=== PATIENT | female | born 1935 | race Caucasian/White ===

== ENCOUNTER → 2023-05-09 | Outpatient (CLI) | payer MEDICARE, SELFPAY ==
[2023-05-09 09:56] LABS: Absolute Lymphocyte Count 1.06 X10^3/uL (0.83-4.51); Absolute Neutrophil Count 3.6 X10^3/uL (2.0-7.7); Basophil# 0.06 X10^3/uL; Eosinophil# 0.31 X10^3/uL; Eosinophils% 5.4 % (0-5); Hemoglobin 12.7 g/dL (12.0-15.0); Lymphocyte # 1.06 X10^3/ul (0.83-4.51); Lymphocyte % 18.5 % (19-41); Mean Corp Hgb Conc 32.6 g/dL (32-36); Mean Corpuscular Hgb 33.1 pg (27.0-32.0); Mean Corpuscular Volume 101.6 fL (81-99); Mean Platelet Vol. 10.5 fl (6.2-12.0); Monocyte# 0.71 X10^3/uL; Monocyte% 12.4 % (0-10); NRBC Flagged by Analyzer 0 % (0-5); Neutrophil # 3.57 X10^3/uL (2.7-7.7); Neutrophil % 62.4 % (47-70); Platelet Count 188 K/mm3 (150-450); RBC Distribution Width CV 12.6 % (11.6-14.6); RBC Distribution Width SD 47.6 fl (35.1-43.9); Red Blood Count 3.84 M/mm3 (4.2-5.4); White Blood Count 5.7 K/mm3 (4.4-11.0)
[2023-05-09 10:35] LABS: ALB/GLOB Ratio 1.2 RATIO (0.9-2.4); AST(SGOT) 22 U/L (15-37); Alanine Aminotransfer ALT/SGPT 25 U/L (13-56); Albumin, Serum 3.4 g/dL (3.2-5.0); Alkaline Phosphatase 94 U/L (45-117); Anion Gap 4 (5-15); BUN 17 mg/dL (7-18); BUN/Creat Ratio 19.9 RATIO (10-20); Calcium,Total 9.4 mg/dL (8.5-10.1); Chloride 110 mmol/L (98-107); Creatinine, Serum 0.85 mg/dL (0.55-1.02); EST Glomerular Filtration Rate 67 mL/min (>60); Est Glom Filt Rate - Afr Amer 81 mL/min (>60); Globulin 2.8 g/dL (2.2-4.2); Glucose 111 mg/dL (74-106); Protein, Total 6.2 g/dL (6.4-8.2); Sodium Level 143 mmol/L (136-145)
== END | disposition home or self-care (01) ==
LOC: LAB 08:38
PROVIDERS: PCP Internal Medicine; Referring Provider Internal Medicine; Visit Provider Internal Medicine
DX: I10 Essential (primary) hypertension (principal)
CPT/HCPCS: 36415; 80053; 85025

== ENCOUNTER 2023-05-13 20:07 | Observation (INO) | payer MEDICARE, SELFPAY ==
[2023-05-13 20:10] VITALS: BP 168/58; PULSE 60; RESP 18; TEMP 36.6; O2SAT 98; BMI 23.8
--- NOTE | 2023-05-13 20:42 | EDS_ITS ---
HPI HPI - Fall History of Present Illness Chief Complaint: Fall Informant: patient and family Occured/Mechanism Occurred: Today Mechanism/Context: Yes same level fall Usually ambulates: Walker Pain/Injury Pain Location: head, upper extremity (Right shoulder) and lower extremity (Right hip and right foot) Quality of Pain: Aching Worsened by: Movement Relieved by: Rest Associated Symptoms Associated Symptoms: Negative for Parasthesias, Weakness, Loss of function or Loss of consciousness Narrative Narrative: Patient presents after a fall that occurred today. Patient tried to stand from a seated position and fell onto her right side. Patient did hit her head. Family denies any loss of consciousness. Patient states her pain is mainly over her right shoulder. Patient also admits to some mild pain in her right hip and right foot. Patient states her pain is worse with any movement. Patient denies any paresthesias or weakness. Patient denies any other injuries. Tetanus Immunization: Unknown [facility] Medical History Atherosclerotic heart disease of [place] coronary artery without angina pectoris Cataract Constipation Essential (primary) hypertension Hyperlipidemia Non-ST elevation (NSTEMI) myocardial infarction (03/09/15) Pericardial effusion Peripheral vascular disease with claudication Positive colorectal cancer screening using Cologuard test Stenosis of right carotid artery Home Medications aspirin 81 mg tablet,delayed release 81 mg PO DAILY 03/29/17 [History Last Taken 11/12/18] levothyroxine 50 mcg tablet 50 mcg PO DAILY 03/29/17 [History Last Taken 11/20/18] losartan 100 mg tablet 100 mg PO DAILY #90 tabs 08/17/18 [Rx Last Taken Unknown] doxazosin 4 mg tablet 4 mg PO DAILY 10/20/18 [History Last Taken Unknown] amlodipine 10 mg tablet 10 mg PO DAILY 08/13/19 [History Last Taken Unknown] metoprolol tartrate 50 mg tablet 50 mg PO BID 08/12/20 [History Last Taken Unknown] clopidogrel 75 mg tablet (Plavix) 75 mg PO DAILY 11/27/21 [History Last Taken Unknown] memantine 10 mg tablet 10 mg PO QPM 07/23/22 [History Last Taken Unknown] biotin 1 mg tablet 1 mg PO DAILY 08/31/22 [History Last Taken Unknown] cholecalciferol (vitamin D3) 25 mcg (1,000 unit) tablet 25 mcg PO DAILY 08/31/22 [History Last Taken Unknown] folic acid 1 mg tablet 2 mg PO DAILY 08/31/22 [History Last Taken Unknown] ginkgo biloba leaf extract 60 mg capsule 60 mg PO DAILY 08/31/22 [History Last Taken Unknown] potassium chloride 10 mEq tablet,extended release 10 meq PO DAILY 08/31/22 [History Last Taken Unknown] sulfasalazine 500 mg tablet 0.5 g PO DAILY 08/31/22 [History Last Taken Unknown] furosemide 40 mg tablet See Rx Instructions .Route .COMPLEX #90 tabs 09/30/22 [Rx Last Taken Unknown] atorvastatin 40 mg tablet 40 mg PO QHS 30 days #30 tabs 10/23/22 [Rx Last Taken Unknown] hydrocodone-acetaminophen 5-325mg 5mg-325mg 1 tab PO Q6H PRN PRN Pain 3 days #10 TABLETS 05/13/23 [Rx Last Taken Unknown] Allergy/AdvReac Type Severity Reaction Status Date / Time codeine Allergy Nausea/Vom/ Verified 08/31/22 10:41 Diarrhea duloxetine HCl Allergy Nausea/Vom/ Verified 08/31/22 10:41 [From Cymbalta] Diarrhea esomeprazole [From Nexium] Allergy Unknown Verified 08/31/22 10:41 gabapentin Allergy Unknown Verified 08/31/22 10:41 lisinopril Allergy Nausea Verified 08/31/22 10:41 tramadol Allergy Nausea Verified 08/31/22 10:41 meloxicam AdvReac Intermediate GI upset Verified 08/31/22 10:41 iodine AdvReac Hives Verified 08/31/22 10:41 Penicillins AdvReac Other Verified 08/31/22 10:41 Family History Father Cancer Mother No problems noted. Surgical History History of angioplasty of peripheral vessel (04/2017) History of coronary artery stent placement History of left heart catheterization (03/10/15) Hx of cholecystectomy Hx of shoulder surgery Social History housing: house Smoking Status: Former smoker alcohol intake: never substance use type: does not use caffeine: Yes Type: coffee Number of servings: 1 what type of physical activity do you participate in: none seatbelt use: always do you feel safe at home: Yes ROS ROS ED Constitutional Constitutional ED: Denies chills or fever(s) Eyes Eyes: Denies blurry vision or change in vision ENT ENT ED: Denies rhinorrhea or sore throat Cardiovascular Cardiovascular: Denies chest pain or palpitations Respiratory/Chest Respiratory/Chest: Denies cough or dyspnea Gastrointestinal Gastrointestinal: Denies nausea or vomiting Genitourinary Genitourinary ED: Denies dysuria or hematuria Musculoskeletal Musculoskeletal: Denies back pain or neck pain Integumentary Denies abscess or rash Neurologic Neurologic: Denies headache(s) or weakness Allergic/Immunologic Allergic/Immunologic ED: Denies mouth swelling or urticaria EXAM Physical Exam Const Vital Signs: 05/13/23 20:10 05/13/23 20:10 Temperature 98 F Temperature Source Temporal Pulse Rate 60 Respiratory Rate 18 Respiratory Effort Normal Respiratory Depth Normal Respiratory Pattern Normal Blood Pressure 168/58 H Blood Pressure Mean 94 Pulse Ox 98 Oxygen Delivery Method Room Air Room Air Positive well nourished and well developed General Appearance ED: well developed and NAD HEENT HEENT Narrative: There is some right periorbital ecchymosis and edema. There is a 1.5 cm linear laceration over the lateral aspect of the right periorbital area. There is minimal gapping of the wound margins. There is minimal bleeding. There is no bony crepitance or step-off noted. trauma Eyes PERRL and EOMs intact bilaterally Neck full ROM Resp normal respiratory effort and clear to auscultation bilaterally Cardio regular rate and regular rhythm GI non-tender and non-distended Extremity Extremity Narrative: There is tenderness, edema, and ecchymosis over the right shoulder and proximal humerus. Range of motion was limited in all motions of the right shoulder secondary to pain. There is mild tenderness over the right hip and right foot. There is no deformity noted. There is good range of motion of the right lower extremity. Radial and pedal pulses are equal bilaterally. Strength is 5/5 bilaterally in the upper and lower extremities. There are no sensory deficits noted. Neuro CN's II-XII intact bilaterally, moves all extremities, no focal motor deficits and no sensory deficits noted [place] Coma Scale: document GCS findings Spontaneous Obeys Commands Oriented 15 Sensorium / Orientation: alert Motor Exam: strength 5/5 throughout Psych mental status grossly normal MDM MDM MDM Narrative Medical decision making narrative: Differential diagnosis includes intracranial bleeding, proximal humerus fracture, shoulder contusion, hip fracture, foot fracture, and closed head injury. CT scan of the brain will be obtained to assess for intracranial bleeding. X-rays of the right shoulder will be obtained to assess for proximal humerus fracture. X-rays of the right hip will be obtained to assess for hip fracture. X-rays of the right foot will be obtained to assess for foot fracture. Radiography Diagnostic Testing: Clinical Impression(s) from Imaging Studies Brain CT 05/13/23 21:04 IMPRESSION: Chronic involutional changes of the brain. No acute intracranial hemorrhage. Suspect acute facial fracture with hemorrhage in the right maxillary sinus. Correlation with facial bone CT is recommended. Electronically Signed: Jonathan Alexis MD at 22:17 EST Reading Location ID and State: [place] / [employer] , Service support , Foot X-Ray 05/13/23 21:25 IMPRESSION: No acute fracture or dislocation. Electronically Signed: Jonathan Alexis MD at 22:05 EST Reading Location ID and State: [place] / [employer] , Service support , Hip/Pelvis X-Ray 05/13/23 21:25 IMPRESSION: No acute fracture or dislocation. Electronically Signed: Jonathan Alexis MD at 22:09 EST Reading Location ID and State: [place] / [employer] , Service support , Shoulder X-Ray 05/13/23 21:25 IMPRESSION: Acute nondisplaced humeral neck fracture. Electronically Signed: Jonathan Alexis MD at 22:10 EST Reading Location ID and State: [id number] / [employer] , Service support , CT scan of the brain was obtained. There is no intracranial bleeding noted. There is hemorrhage in the right maxillary sinus likely from a facial fracture. This was interpreted by the radiologist and was also independently reviewed by myself. X-rays of the right shoulder were obtained. There are 2 views. On my independent interpretation, there is nondisplaced fracture of the proximal humerus. There is no dislocation noted. There is no soft tissue swelling noted. Radiologist also interpreted the x-rays and agrees. X-rays of the right hip were obtained. There are 3 views. On my independent interpretation, there is no acute fracture or dislocation noted. Radiologist also interpreted the x- rays and agrees.X-rays of the right foot were obtained. There are 3 views. On my independent interpretation, there is no acute fracture or dislocation noted. There is no soft tissue swelling noted. Radiologist also interpreted the x-rays and agrees. Treatment and Re-Evaluation Narrative: Patient and family were advised of the findings. Patient was given a sling and swath. The laceration over the right periorbital area was cleaned and closed with Dermabond skin adhesive. Patient tolerated the procedure well. Daughter was instructed to avoid bacitracin, Neosporin, triple antibiotic, or Vaseline- based ointments to the area. Daughter was concerned that she would be unable to care for the patient at home. Patient was unable to ambulate here in the emergency department. Because of this, I will discuss the case with the hospitalist for observation admission. Discharge Plan Triage Chief Complaint: Fall ED Provider: Warner Carbajal Dx/Rx/DC Orders Clinical Impression: Closed fracture of proximal end of right humerus, Facial laceration, Fall Prescriptions: New hydrocodone-acetaminophen [hydrocodone-acetaminophen] 5-325 mg tablet 1 tab PO Q6H PRN PRN (Reason: Pain) 3 Days Qty: 10 0RF No Action losartan 100 mg tablet 100 mg PO DAILY Qty: 90 3RF amlodipine 10 mg tablet 10 mg PO DAILY doxazosin 4 mg tablet 4 mg PO DAILY metoprolol tartrate 50 mg tablet 50 mg PO BID sulfasalazine 500 mg tablet 0.5 g PO DAILY potassium chloride 10 mEq tablet extended release 10 meq PO DAILY folic acid 1 mg tablet 2 mg PO DAILY biotin 1 mg tablet 1 mg PO DAILY ginkgo biloba leaf extract 60 mg capsule 60 mg PO DAILY Rx Instructions: give with meal/snack cholecalciferol (vitamin D3) 25 mcg (1,000 unit) tablet 25 mcg PO DAILY clopidogrel [Plavix] 75 mg tablet 75 mg PO DAILY memantine 10 mg tablet 10 mg PO QPM aspirin 81 MG tablet,delayed release (DR/EC) 81 mg PO DAILY levothyroxine 50 MCG tablet 50 mcg PO DAILY atorvastatin 40 mg Tablet 40 mg PO QHS 30 Days Qty: 30 0RF furosemide 40 mg tablet See Rx Instructions .ROUTE .COMPLEX Qty: 90 3RF Dose Instruction: TAKE 1 TABLET BY MOUTH DAILY Rx Instructions: TAKE 1 TABLET BY MOUTH DAILY Primary Care Provider: Ashley Montoya Referrals: Ashley Montoya MD [Primary Care Provider] - 5-7 Days Robert Syed MD [Med Staff - Active Staff] - 5-7 Days Disposition Disposition: Acute Care Hospital [facility]
--- NOTE | 2023-05-13 21:04 | CT_ITS ---
STUDY: CT BRAIN WITHOUT CONTRAST REASON FOR EXAM: Female, 87 years old. Injury/Pain RADIATION DOSAGE (If Supplied By Facility): CTDIvol = ( 44.99 ) mGy, DLP = ( 779.24 ) mGycm TECHNIQUE: Transaxial CT imaging of the brain was performed without administration of intravenous contrast material. Individualized dose optimization techniques were used for this CT. COMPARISON: 10/22/2022 FINDINGS: Normal soft tissue structures. Normal calvarium. There is mild cerebral atrophy with widening of the extra-axial spaces and ventricular dilatation. There are areas of decreased attenuation within the white matter tracts of the supratentorial brain, consistent with microvascular disease changes. Normal basal ganglia and thalami. Normal brainstem. Normal cerebellum. There is no intracranial hemorrhage. There are no findings of an acute ischemic infarction. Air-fluid level of increased attenuation within the right maxillary sinus worrisome for hemorrhage likely from a facial fracture. Correlation with facial bone CT is recommended. CT/Brain/Head without Contrast IMPRESSION: Chronic involutional changes of the brain. No acute intracranial hemorrhage. Suspect acute facial fracture with hemorrhage in the right maxillary sinus. Correlation with facial bone CT is recommended. Electronically Signed: Jonathan Alexis MD at 22:17 EST ,
--- NOTE | 2023-05-13 21:25 | RAD_ITS ---
STUDY: X-RAY - RIGHT SHOULDER REASON FOR EXAM: Female, 87 years old. Injury/Pain TECHNIQUE: 2 view(s) of the shoulder. COMPARISON: None. FINDINGS: Normal glenohumeral articulation. Normal acromioclavicular joint. Normal acromion. Acute nondisplaced oblique fracture of the neck of the humerus. The soft tissue structures are unremarkable. Normal visualized pulmonary apex. RAD/Shoulder min 2 Views IMPRESSION: Acute nondisplaced humeral neck fracture. Electronically Signed: Jonathan Alexis MD at 22:10 EST ,
--- NOTE | 2023-05-13 21:25 | RAD_ITS ---
STUDY: X-RAY - RIGHT FOOT CLINICAL: Female, 87 years old. Injury/Pain TECHNIQUE: 3 view(s) of the foot. COMPARISON: None. FINDINGS: Normal talus, calcaneus, and tarsal bones. Mild midfoot arthrosis Normal metatarsi. Normal metatarsophalangeal joint of the great toe. Normal tibial and fibular sesamoid bones. Normal interphalangeal joint of the great toe. Normal phalanges of the great toe. Normal second through fifth metatarsophalangeal joints. Normal interphalangeal joints and phalanges of the lesser toes. The soft tissue structures are unremarkable. RAD/Foot min 3 Views IMPRESSION: No acute fracture or dislocation. Electronically Signed: Jonathan Alexis MD at 22:05 EST ,
--- NOTE | 2023-05-13 21:25 | RAD_ITS ---
STUDY: X-RAY - PELVIS AND RIGHT HIP REASON FOR EXAM: Female, 87 years old. Injury/Pain TECHNIQUE: 3 views of the pelvis and hip. COMPARISON: 05/23/2017 FINDINGS: There is a non-specific bowel gas pattern. Normal visualized soft tissue structures. Normal bilateral iliac wings, sacroiliac joints and visualized sacrum. Normal bilateral superior and inferior pubic rami. Normal pubic symphysis. Normal bilateral ischial tuberosities. Normal visualized femoral head. Normal acetabulum. There is mild articular joint space narrowing of the hip. RAD/HIP, UNI W/ Pelvis 2-3 Views IMPRESSION: No acute fracture or dislocation. Electronically Signed: Jonathan Alexis MD at 22:09 EST ,
[2023-05-13] MEDS: Diphth,Pertuss(Acell),Tet Vac 0.5 ML Vial IM (22:00)
[2023-05-13 22:07] VITALS: PULSE 84; RESP 18; O2SAT 98
[2023-05-13] MEDS: Morphine 4 MG/ML Syringe IM (22:17)
--- NOTE | 2023-05-13 23:12 | PCM.HP.STD ---
HPI - General General Date of Admission: 05/13/23 Date of Service: 05/13/23 Chief Complaint: mechanical fall HPI Narrative KIRBY MCKEON, is a 87 F with a PMH as outlined who presents via the ED on 05/13/2023 with a complaint of mechanical fall. She tried getting up from a seated position and fell, landing on her right side. She denied any lightheadedness, palpitations, dizziness or any prodromal symptoms before the fall. She complained of pain in her right shoulder and right hip. She didnt lose consciousness. Daughter thinks she just likely lost her balance. Review of systems was otherwise negative. Vitals at time of review were BP of 168/58. DC of 60, RR Of 18 and temp of 98F. She was saturating at 98% on room air. Xray of the right shoulder showed acute nondisplaced humeral neck fracture. Right hip xray showed no acute fracture or dislocation. Right foot xray also showed no acute fracture or dislocation. CT of the brain showed chronic involutional changes, with no acute intracranial hemorrhage, and showed suspected acute facial structure with hemorrhage in the right maxillary sinus. Patient has dementia and lives at home with her daughter. Patient couldnt ambulate very well in the ED and daughter didnt think she could take care of her at home. SHe is therefore being admitted to be managed for debility due to mechanical fall with resultant right humeral fracture. [facility] Medical History Atherosclerotic heart disease of [place] coronary artery without angina pectoris Cataract Constipation Essential (primary) hypertension Hyperlipidemia Non-ST elevation (NSTEMI) myocardial infarction (03/09/15) Pericardial effusion Peripheral vascular disease with claudication Positive colorectal cancer screening using Cologuard test Stenosis of right carotid artery Home Medications aspirin 81 mg tablet,delayed release 81 mg PO DAILY 03/29/17 [History Last Taken 11/12/18] levothyroxine 50 mcg tablet 50 mcg PO DAILY 03/29/17 [History Last Taken 11/20/18] losartan 100 mg tablet 100 mg PO DAILY #90 tabs 08/17/18 [Rx Last Taken Unknown] doxazosin 4 mg tablet 4 mg PO DAILY 10/20/18 [History Last Taken Unknown] amlodipine 10 mg tablet 10 mg PO DAILY 08/13/19 [History Last Taken Unknown] metoprolol tartrate 50 mg tablet 50 mg PO BID 08/12/20 [History Last Taken Unknown] clopidogrel 75 mg tablet (Plavix) 75 mg PO DAILY 11/27/21 [History Last Taken Unknown] memantine 10 mg tablet 10 mg PO QPM 07/23/22 [History Last Taken Unknown] biotin 1 mg tablet 1 mg PO DAILY 08/31/22 [History Last Taken Unknown] cholecalciferol (vitamin D3) 25 mcg (1,000 unit) tablet 25 mcg PO DAILY 08/31/22 [History Last Taken Unknown] folic acid 1 mg tablet 2 mg PO DAILY 08/31/22 [History Last Taken Unknown] ginkgo biloba leaf extract 60 mg capsule 60 mg PO DAILY 08/31/22 [History Last Taken Unknown] potassium chloride 10 mEq tablet,extended release 10 meq PO DAILY 08/31/22 [History Last Taken Unknown] sulfasalazine 500 mg tablet 0.5 g PO DAILY 08/31/22 [History Last Taken Unknown] furosemide 40 mg tablet See Rx Instructions .Route .COMPLEX #90 tabs 09/30/22 [Rx Last Taken Unknown] atorvastatin 40 mg tablet 40 mg PO QHS 30 days #30 tabs 10/23/22 [Rx Last Taken Unknown] hydrocodone-acetaminophen 5-325mg 5mg-325mg 1 tab PO Q6H PRN PRN Pain 3 days #10 TABLETS 05/13/23 [Rx Last Taken Unknown] Allergy/AdvReac Type Severity Reaction Status Date / Time codeine Allergy Nausea/Vom/ Verified 08/31/22 10:41 Diarrhea duloxetine HCl Allergy Nausea/Vom/ Verified 08/31/22 10:41 [From Cymbalta] Diarrhea esomeprazole [From Nexium] Allergy Unknown Verified 08/31/22 10:41 gabapentin Allergy Unknown Verified 08/31/22 10:41 lisinopril Allergy Nausea Verified 08/31/22 10:41 tramadol Allergy Nausea Verified 08/31/22 10:41 meloxicam AdvReac Intermediate GI upset Verified 08/31/22 10:41 iodine AdvReac Hives Verified 08/31/22 10:41 Penicillins AdvReac Other Verified 08/31/22 10:41 Family History Father Cancer Mother No problems noted. Surgical History History of angioplasty of peripheral vessel (04/2017) History of coronary artery stent placement History of left heart catheterization (03/10/15) Hx of cholecystectomy Hx of shoulder surgery Social History housing: house Smoking Status: Former smoker alcohol intake: never substance use type: does not use caffeine: Yes Type: coffee Number of servings: 1 what type of physical activity do you participate in: none seatbelt use: always do you feel safe at home: Yes ROS Constitutional Constitutional: Reports fatigue, malaise and weakness; Denies anorexia, change in weight, chills or fever(s) Eyes Eyes: Denies change in vision ENT HEENT: Denies dysphagia or headache(s) Cardiovascular Cardiovascular: Denies chest pain, edema or paroxysmal nocturnal dyspnea Respiratory/Chest Respiratory/Chest: Denies cough, shortness of breath at rest or shortness of breath with exertion Gastrointestinal Gastrointestinal: Denies abdominal pain, nausea or vomiting Genitourinary Genitourinary: Denies dysuria Musculoskeletal Musculoskeletal: Reports extremity pain, joint pain, limited range of motion and muscle weakness; Denies back pain, joint stiffness, joint swelling, neck pain or stiffness Integumentary Integumentary: Denies jaundice Neurologic Neurologic: Reports weakness; Denies confusion, dizziness, focal weakness, headache(s), lack of coordination, numbness, seizures or tremor(s) Psychiatric Psychiatric: Denies anxiety or depression Vital Signs Vital Signs Vital Signs: 05/13/23 20:10 05/13/23 20:10 Temperature 98 F Temperature Source Temporal Pulse Rate 60 Respiratory Rate 18 Respiratory Effort Normal Respiratory Depth Normal Respiratory Pattern Normal Blood Pressure 168/58 H Blood Pressure Mean 94 Pulse Ox 98 Oxygen Delivery Method Room Air Room Air Weight Weight: 122 lb 2.177 oz Body Mass Index (BMI) 23.8 Physical Exam Const alert and no apparent distress Constitutional Narrative: frail, confused due to dementia General Appearance: cooperative HEENT normocephalic and head/scalp atraumatic HEENT Narrative: right periorbital ecchymosis. Small ~ 1.5cm laceration over the lateral aspect of the right periorbital area Mouth: dry mucous membranes Eyes PERRL and EOMs intact bilaterally Neck no lymphadenopathy and supple Lymph Lymphatic: no lymphadenopathy noted and no lymphedema noted Resp normal respiratory effort, normal air movement and clear to auscultation bilaterally Cardio regular rate, regular rhythm, S1 normal heart sound, S2 normal heart sound and no murmurs GI normal to inspection, nondistended, normoactive bowel sounds, soft to palpation and non-tender Extremity Extremity Narrative: tenderness and echymosis over hte right shoulder and proximal humerus. RUE in sling Skin Skin Narrative: laceration lateral to right periorbital edema as stated Lesions: no lesions Neuro CN's II-XII intact bilaterally, no focal motor deficits and no sensory deficits noted Motor Exam: general weakness Psych thought process normal and cooperative Appearance: appropriate Results Imagaing Radiology Impression Brain CT 05/13/23 21:04 IMPRESSION: Chronic involutional changes of the brain. No acute intracranial hemorrhage. Suspect acute facial fracture with hemorrhage in the right maxillary sinus. Correlation with facial bone CT is recommended. Electronically Signed: Jonathan Alexis MD at 22:17 EST Reading Location ID and State: [employer] / [employer] , Service support , Foot X-Ray 05/13/23 21:25 IMPRESSION: No acute fracture or dislocation. Electronically Signed: Jonathan Alexis MD at 22:05 EST Reading Location ID and State: [employer] / [employer] , Service support , Hip/Pelvis X-Ray 05/13/23 21:25 IMPRESSION: No acute fracture or dislocation. Electronically Signed: Jonathan Alexis MD at 22:09 EST Reading Location ID and State: [employer] / [employer] , Service support , Shoulder X-Ray 05/13/23 21:25 IMPRESSION: Acute nondisplaced humeral neck fracture. Electronically Signed: Jonathan Alexis MD at 22:10 EST Reading Location ID and State: [employer] / [employer] , Service support , Assessment & Plan Assessment/Plan (1) Fall: (2) Facial laceration: (3) Closed fracture of proximal end of right humerus: PLAN: Plan #Debility due to mechanical fall with resultant right upper humeral fracture admit to med surg RUE in sling; patient and family counseled management will be nonoperative PO tylenol, PO oxycodone and IV morphine prn for pain XR of hte RUE showed a right upper humeral fracture xray of the right hip showed no evidence of fracture PT/OT consult fall precautions. hydrate gently with IVF NS @ 125cc/hr x 2 bags #CAD: on aspirin, statin and plavix #Hypertension; on amlodipine nad losartan as well as metoprolol #Hypothyroidism: On Synthroid #Alzheimer's dementia: On memantine DVT prophylaxis: SCDs COde status:DNRCCA no intubation Patient's daughter counseled extensively about different types of CODE STATUS including full code, DNR CCA and DNR CCA. Patient's daughter says her mother has DNR papers signed, and after being counseled about differences between DNRCC and DNRCCA, daughter elects for patient to be DNRCCA no intubation. Total [id number] time 17 minutes. Charges/Coding Visit Charges Inpatient E&M: 12886 Init Hosp L3 Procedures Hospitalists Procedures: 52867 Advncd Care Plan 30 Min
[2023-05-14] VITALS (8 sets, daily range): BP systolic 119–156; BP diastolic 43–93; PULSE 58–87; RESP 16–18; TEMP 36.4–37.2; O2SAT 92–95; BMI 20.5
[2023-05-14] MEDS: oxyCODONE 5 MG Tablet PO ×3 (00:45→17:49)
[2023-05-14] MEDS: 0.9% Normal Saline (1000mL) 1,000 ML 125 ML IV ×2 (01:44→10:52)
[2023-05-14] MEDS: 0.9% Saline Lock 10 ML Syringe IV ×3 (01:44→20:08)
[2023-05-14] MEDS: Morphine 2 MG/ML Syringe IV ×2 (03:12→20:07)
[2023-05-14 06:57] LABS: Absolute Lymphocyte Count 0.46 X10^3/uL (0.83-4.51); Absolute Neutrophil Count 6.9 X10^3/uL (2.0-7.7); Basophil# 0.04 X10^3/uL; Basophil% 0.5 % (0-1); Eosinophil# 0.28 X10^3/uL; Eosinophils% 3.3 % (0-5); Hematocrit 30.4 % (37-47); Hemoglobin 9.9 g/dL (12.0-15.0); Lymphocyte # 0.46 X10^3/ul (0.83-4.51); Lymphocyte % 5.5 % (19-41); Mean Corp Hgb Conc 32.6 g/dL (32-36); Mean Corpuscular Hgb 32.8 pg (27.0-32.0); Mean Corpuscular Volume 100.7 fL (81-99); Mean Platelet Vol. 10.9 fl (6.2-12.0); Monocyte# 0.72 X10^3/uL; Monocyte% 8.5 % (0-10); NRBC Flagged by Analyzer 0 % (0-5); Neutrophil # 6.89 X10^3/uL (2.7-7.7); Neutrophil % 81.7 % (47-70); POSITIVE DIFFERENTIAL YES; Platelet Count 160 K/mm3 (150-450); RBC Distribution Width CV 12.7 % (11.6-14.6); RBC Distribution Width SD 46.5 fl (35.1-43.9); Red Blood Count 3.02 M/mm3 (4.2-5.4); White Blood Count 8.4 K/mm3 (4.4-11.0)
[2023-05-14 07:07] LABS: Differential Indicated SCAN CRITERIA MET
--- NOTE | 2023-05-14 08:09 | PN.HOSP_ITS ---
Reason for Visit Reason for Visit: Diagnoses Laceration without foreign body of other part of head, initial encounter (05/13) Unspecified fracture of upper end of right humerus, initial encounter for closed fracture (05/13/23) Unspecified fall, initial encounter (05/13/23) Subjective Subjective Patient is an 87-year-old lady with history of dementia brought to the emergency department after falling Objective Data Objective Data Vital Signs: Vital Signs Temp Pulse Resp BP Pulse Ox O2 Del Method 97.6 F L 58 L 18 150/43 H 94 Room Air 05/14/23 01:45 05/14/23 01:45 05/14/23 01:45 05/14/23 01:45 05/14/23 07:46 05/14/23 07:46 Oxygen Delivery Method Room Air Weight: 51 kg Body Mass Index (BMI) 20.5 Lab / Micro Data 05/14/23 05:56 05/14/23 05:56 Labs: Laboratory Results - last 24 hr 05/14/23 05:56: WBC 8.4, RBC 3.02 L, Hgb 9.9 L, Hct 30.4 L, MCV 100.7 H, MCH 32.8 H, MCHC 32.6, RDW Std Deviation 46.5 H, RDW Coeff of Dileep 12.7, Plt Count 160, MPV 10.9, Immature Gran % (Auto) 0.500, Neut % (Auto) 81.7 H, Lymph % (Auto) 5.5 L, [place] % (Auto) 8.5, Eos % (Auto) 3.3, Baso % (Auto) 0.5, Absolute Neuts (auto) 6.9, Absolute Lymphs (auto) 0.46 L, Nucleated RBC % 0 Radiography Diagnostic Testing: Radiology Impression Brain CT 05/13/23 21:04 IMPRESSION: Chronic involutional changes of the brain. No acute intracranial hemorrhage. Suspect acute facial fracture with hemorrhage in the right maxillary sinus. Correlation with facial bone CT is recommended. Electronically Signed: Jonathan Alexis MD at 22:17 EST , Foot X-Ray 05/13/23 21:25 IMPRESSION: No acute fracture or dislocation. Electronically Signed: Jonathan Alexis MD at 22:05 EST Reading Location ID and State: [id number] / [facility] , Service support , Hip/Pelvis X-Ray 05/13/23 21:25 IMPRESSION: No acute fracture or dislocation. Electronically Signed: Jonathan Alexis MD at 22:09 EST Reading Location ID and State: [id number] / [facility] , Service support , Shoulder X-Ray 05/13/23 21:25 IMPRESSION: Acute nondisplaced humeral neck fracture. Electronically Signed: Jonathan Alexis MD at 22:10 EST Reading Location ID and State: [id number] / [facility] , Service support , Physical Exam Narrative GENERAL: cooperative HEENT: Atraumatic; normocephalic EYES; Anicteric, Normal Conjunctiva NECK; supple, normal thyroid, RESPIRATORY: Diminished to auscultation CARDIOVASCULAR: Regular S1 S2, GI: soft, normoactive bowel sounds, : No Renal angle tenderness; EXTREMITIES: No edema, no clubbing, MUSCULOSKELETAL: Right upper extremity in a sling NEURO: Awake; no lateralizing signs. SKIN: No Rash PSYCH; Flat affect Assessment & Plan Assessment/Plan (1) Fall: (2) Facial laceration: (3) Closed fracture of proximal end of right humerus: PLAN: Plan Patient is an 87-year-old lady with history of dementia brought to the emergency department after falling 1. Debility due to mechanical fall with resultant right upper humeral fracture ? Patient has been admitted to [facility] floor for symptomatic management with pain meds as well as immobilization of the right shoulder in a sling. Requested for PT OT eval and social service manager to assist with discharge planning 2. Anemia - Secondary to chronic disorder monitoring H&H and transfuse if patient becomes symptomatic or hemoglobin falls below 7 3. Coronary artery disease ? Patient is on guideline directed medical therapy 4. Alzheimer's dementia ? Patient is on Namenda discontinued 5. Hypertension - Blood pressure relatively low antihypertensives held, did continue on metoprolol which decreased dose however held amlodipine doxazosin and losartan. 6. Hypothyroidism - Patient is on levothyroxine home dose continued 7. Acute kidney injury ? Baseline creatinine from 10/23/2022 was 0.89, creatinine as of 05/14/2023 was 1.15 patient started on IV hydration with subsequent monitoring of electrolytes ordered 8. DVT prophylaxis - On enoxaparin Time spent in the patient's overall evaluation,decision-making process, review of diagnostic data, adjustment of management, discussion with other providers, nursing nursing and ancillary staff involved in patient's care documentation, 50 Minutes Charges/Coding Visit Charges Inpatient E&M: 71706 [facility] Hosp L3
[2023-05-14 09:18] LABS: Anion Gap 6 (5-15); BUN 22 mg/dL (7-18); BUN/Creat Ratio 19.1 RATIO (10-20); Calcium,Total 8.6 mg/dL (8.5-10.1); Chloride 110 mmol/L (98-107); Creatinine, Serum 1.15 mg/dL (0.55-1.02); EST Glomerular Filtration Rate 47 mL/min (>60); Est Glom Filt Rate - Afr Amer 57 mL/min (>60); Estimated Creatinine Clearance 26.23 ml/min; Glucose 136 mg/dL (74-106); Potassium 3.8 mmol/L (3.5-5.1); Sodium Level 143 mmol/L (136-145)
[2023-05-14] MEDS: Flu Vacc QS2023-24(65YR UP)/PF 240 MCG/0.7 ML Syringe IM (11:04)
[2023-05-14] MEDS: Memantine Hydrochloride 10 MG Tablet PO ×2 (13:26→20:08)
--- NOTE | 2023-05-14 17:10 | CASEMGMT ---
DANI RENE NOTE: Noted pt w/hx of dementia and oriented to self only. DANI RENE placed call to pt's daughter, Ya. Introduced self and role. Ya states pt lives w/her and her son-in-law (Ya's ) in a 2-story home w/3 steps to enter. [employer]. Ya states pt is independent w/ADL's @ her baseline and does not use any AD to ambulate with and does not have any other DME. Ya states she (Ya) is home all day and helps to take care of pt and manages her medications and does food prep/home mgnt tasks. Pt no longer drives (since August 2022). Family provides transportation. Pt's PCP is Dr Montoya and she sees Dr Monreal/cardiology and Dr Casey/[place]. Pt's insurance is [facility] [employer] Ya states pt has done LW and HCPOA and she (Ya) is her POA. She states she has copies of documents and can bring them in tomorrow to be copied and placed on pt's chart. Pt also has another daughter and a son. Ya states pt fell yesterday d/t she wasn't steady when she stood up and she has a habit of standing up and just going . Discussed discharge plan/needs. Ya states she would like to take pt home, if she is able to ambulate/get around fairly well. DANI RENE asked her if she would like to be present when therapy works w/her tomorrow to see how she is doing and then she could decide if she feels she is able to take care of her @ home. Ya voices she would like to do that and voices appreciation. DANI RENE placed call to Gwen in therapy and coordinated for therapy to work w/pt tomorrow @ 10 AM while Ya present so she can see how she is doing. Ya made aware to let staff know afterwards if she would like to take pt home or if she would like pt to go to a SNF for therapy. property assessment monitor/Johanna Tyson/YOBANY, and Dr Jordan all made aware of this. Ya was made aware, if pt does discharge home tomorrow, that she can contact pt's PCP if she is interested in C, as this cannot be set up on the weekend. She voices understanding. Plan: TBD, pending progress w/therapy SNF vs Home w/family support. Kuldip MANN RN CM
[2023-05-14] MEDS: Acetaminophen 325 MG Tablet 650 MG PO (17:49)
--- NOTE | 2023-05-14 17:54 | CASEMGMT ---
Social Work SW introduced self and role to patient. SW provided a SNF list according to patient's insurance and location. Pt reports she will discuss it with her daughter. RN CM spoke with daughter and daughter would like to take her home if she is able to care for her. Plan: SW to follow for discharge needs. Home w/daughter -VS- SNF Soumya Bravo BONE COOKING OPERATOR, WEB SPECIALIST
--- NOTE | 2023-05-14 18:27 | NURSING ---
charting/documentation of Johanna UNIFORM FORCE CAPTAIN reviewed
[2023-05-14] MEDS: Atorvastatin Calcium 40 MG Tablet PO (20:09)
[2023-05-14] MEDS: Metoprolol Tartrate 25 MG Tablet PO (20:09)
[2023-05-15] MEDS: oxyCODONE 5 MG Tablet PO ×3 (01:52→14:11)
[2023-05-15] MEDS: Acetaminophen 325 MG Tablet 650 MG PO ×2 (01:52→09:12)
[2023-05-15 02:53] VITALS: BP 146/55; PULSE 82; RESP 16; TEMP 37.2; O2SAT 93
[2023-05-15] MEDS: Levothyroxine 50 MCG Tablet PO (05:11)
[2023-05-15 07:04] LABS: Absolute Lymphocyte Count 0.54 X10^3/uL (0.83-4.51); Absolute Neutrophil Count 5.8 X10^3/uL (2.0-7.7); Basophil# 0.05 X10^3/uL; Basophil% 0.7 % (0-1); Eosinophil# 0.15 X10^3/uL; Hematocrit 30.1 % (37-47); Hemoglobin 9.6 g/dL (12.0-15.0); Lymphocyte # 0.54 X10^3/ul (0.83-4.51); Lymphocyte % 7.2 % (19-41); Mean Corp Hgb Conc 31.9 g/dL (32-36); Mean Corpuscular Hgb 32.4 pg (27.0-32.0); Mean Corpuscular Volume 101.7 fL (81-99); Mean Platelet Vol. 10.6 fl (6.2-12.0); Monocyte# 0.91 X10^3/uL; Monocyte% 12.1 % (0-10); NRBC Flagged by Analyzer 0 % (0-5); Neutrophil # 5.84 X10^3/uL (2.7-7.7); Neutrophil % 77.6 % (47-70); POSITIVE DIFFERENTIAL YES; Platelet Count 125 K/mm3 (150-450); RBC Distribution Width SD 49.1 fl (35.1-43.9); Red Blood Count 2.96 M/mm3 (4.2-5.4); White Blood Count 7.5 K/mm3 (4.4-11.0)
[2023-05-15 07:10] LABS: Differential Indicated SCAN CRITERIA MET
[2023-05-15 07:17] VITALS: O2SAT 92
--- NOTE | 2023-05-15 07:37 | PN.HOSP_ITS ---
Reason for Visit Reason for Visit: Diagnoses Laceration without foreign body of other part of head, initial encounter (05/13) Unspecified fracture of upper end of right humerus, initial encounter for closed fracture (05/13/23) Unspecified fall, initial encounter (05/13/23) Subjective Subjective Patient seen, remains confused however had a relatively uneventful night. Pain is tolerable. Case was discussed with patient's daughter as well as case management the day prior. Plans for patient to be discharged home following PT eval Objective Data Objective Data Vital Signs: Vital Signs Temp Pulse Resp BP Pulse Ox O2 Del Method 99.0 F 82 16 146/55 H 93 Room Air 05/15/23 02:53 05/15/23 02:53 05/15/23 02:53 05/15/23 02:53 05/15/23 02:53 05/15/23 02:53 Oxygen Delivery Method Room Air Weight: 51 kg Body Mass Index (BMI) 20.5 Intake & Output: Intake and Output for Last 24 Hours 05/13/23 05/14/23 05/15/23 23:59 23:59 23:59 Intake Total 4050.00 / 4050.00 500 / 500 Balance 4050.00 / 4050.00 500 / 500 Lab / Micro Data 05/15/23 06:30 05/14/23 05:56 Labs: Laboratory Results - last 24 hr 05/14/23 05:56: Sodium 143, Potassium 3.8, Chloride 110 H, Carbon Dioxide 27.0, Anion Gap 6, BUN 22 H, Creatinine 1.15 H, Estim Creat Clear Calc 26.23, Est GFR (MDRD) Af Amer 57 L, Est GFR (MDRD) Non-Af 47 L, BUN/Creatinine Ratio 19.1, Glucose 136 H, Calcium 8.6 05/15/23 06:30: WBC 7.5, RBC 2.96 L, Hgb 9.6 L, Hct 30.1 L, MCV 101.7 H, MCH 32.4 H, MCHC 31.9 L, RDW Std Deviation 49.1 H, RDW Coeff of Dileep 13.0, Plt Count 125 L, MPV 10.6, Immature Gran % (Auto) 0.400, Neut % (Auto) 77.6 H, Lymph % (Auto) 7.2 L, [place] % (Auto) 12.1 H, Eos % (Auto) 2.0, Baso % (Auto) 0.7, Absolute Neuts (auto) 5.8, Absolute Lymphs (auto) 0.54 L, Nucleated RBC % 0 Physical Exam Narrative GENERAL: cooperative HEENT: Atraumatic; normocephalic EYES; Anicteric, Normal Conjunctiva NECK; supple, normal thyroid, RESPIRATORY: Diminished to auscultation CARDIOVASCULAR: Regular S1 S2, GI: soft, normoactive bowel sounds, : No Renal angle tenderness; EXTREMITIES: No edema, no clubbing, MUSCULOSKELETAL: Right upper extremity in a sling NEURO: Awake; no lateralizing signs. SKIN: No Rash PSYCH; Flat affect Assessment & Plan Assessment/Plan (1) Fall: (2) Facial laceration: (3) Closed fracture of proximal end of right humerus: PLAN: Plan Patient is an 87-year-old lady with history of dementia brought to the emergency department after falling 1. Debility due to mechanical fall with resultant right upper humeral fracture ? Patient has been admitted to [facility] floor for symptomatic management with pain meds as well as immobilization of the right shoulder in a sling. Requested for PT OT eval and social science teacher to assist with discharge planning 2. Anemia - Secondary to chronic disorder monitoring H&H and transfuse if patient becomes symptomatic or hemoglobin falls below 7 3. Coronary artery disease ? Patient is on guideline directed medical therapy 4. Alzheimer's dementia ? Patient is on Namenda discontinued 5. Hypertension - Blood pressure relatively low antihypertensives held, did continue on metoprolol which decreased dose however held amlodipine doxazosin and losartan. 6. Hypothyroidism - Patient is on levothyroxine home dose continued 7. Acute kidney injury ? Baseline creatinine from 10/23/2022 was 0.89, creatinine as of 05/14/2023 was 1.15 patient started on IV hydration with subsequent monitoring of electrolytes ordered 8. DVT prophylaxis - On enoxaparin Time spent in the patient's overall evaluation,decision-making process, review of diagnostic data, adjustment of management, discussion with other providers, nursing nursing and ancillary staff involved in patient's care documentation, 35 minutes Charges/Coding Visit Charges Inpatient E&M: 07674 Subs Hosp L2
[2023-05-15 09:10] VITALS: BP 168/73; PULSE 81; RESP 16; TEMP 37.1; O2SAT 93
[2023-05-15] MEDS: Enoxaparin 30 MG/0.3 ML Syringe SC (09:12)
[2023-05-15 09:13] VITALS: PULSE 81
[2023-05-15] MEDS: Metoprolol Tartrate 25 MG Tablet PO (09:13)
[2023-05-15] MEDS: sulfaSALAzine 500 MG Tablet PO (09:13)
[2023-05-15] MEDS: Potassium Chloride Oral Tablet 10 MEQ PO (09:13)
[2023-05-15] MEDS: Folic Acid 1 MG Tablet 2 MG PO (09:13)
[2023-05-15] MEDS: Clopidogrel Bisulfate 75 MG Tablet PO (09:13)
[2023-05-15] MEDS: Aspirin E.C. 81 MG Tablet PO (09:13)
[2023-05-15] MEDS: Memantine Hydrochloride 10 MG Tablet PO (09:13)
[2023-05-15] MEDS: Cholecalciferol (VIT D3) 25 MCG TABLET (1,000 UNITS) PO (09:13)
[2023-05-15 10:02] LABS: Anion Gap 6 (5-15); BUN 18 mg/dL (7-18); BUN/Creat Ratio 21.2 RATIO (10-20); Calcium,Total 8.4 mg/dL (8.5-10.1); Chloride 113 mmol/L (98-107); Creatinine, Serum 0.85 mg/dL (0.55-1.02); EST Glomerular Filtration Rate 67 mL/min (>60); Est Glom Filt Rate - Afr Amer 81 mL/min (>60); Estimated Creatinine Clearance 35.49 ml/min; Glucose 117 mg/dL (74-106); Phosphorus 3.1 mg/dL (2.5-4.9); Potassium 3.8 mmol/L (3.5-5.1); Sodium Level 145 mmol/L (136-145)
--- NOTE | 2023-05-15 11:00 | PCM.DC.SUM ---
Providers Date of Admission: 05/13/23 Date of Discharge: 05/15/23 Primary Care Physician: Dr. Ashley Montoya MD Reason For Visit: MECHANICAL FALL, RIGHT UPPER HUMERAL FRACTURE Diagnosis Discharge Diagnosis (1) Fall: Status: Acute Code(s): W19.XXXA - Unspecified fall, initial encounter (2) Facial laceration: Status: Acute Code(s): S01.81XA - Laceration without foreign body of other part of head, initial encounter (3) Closed fracture of proximal end of right humerus: Status: Acute Code(s): S42.201A - Unspecified fracture of upper end of right humerus, initial encounter for closed fracture Plan Patient is an 87-year-old lady with history of dementia brought to the emergency department after falling 1. Debility due to mechanical fall with resultant right upper humeral fracture ? Patient has been [facility] floor for symptomatic management with pain meds as well as immobilization of the right shoulder in a sling. Requested for PT OT eval and social worker health services to assist with discharge planning 2. Anemia - Secondary to chronic disorder monitoring H&H and transfuse if patient becomes symptomatic or hemoglobin falls below 7 3. Coronary artery disease ? Patient is on guideline directed medical therapy 4. Alzheimer's dementia ? Patient is on Namenda discontinued 5. Hypertension - Blood pressure relatively low antihypertensives held, did continue on metoprolol which decreased dose however held amlodipine doxazosin and losartan. 6. Hypothyroidism - Patient is on levothyroxine home dose continued 7. Acute kidney injury ? Baseline creatinine from 10/23/2022 was 0.89, creatinine as of 05/14/2023 was 1.15 patient started on IV hydration with subsequent monitoring of electrolytes ordered 8. DVT prophylaxis - On enoxaparin Time spent in the patient's overall evaluation,decision-making process, review of diagnostic data, adjustment of management, discussion with other providers, nursing nursing and ancillary staff involved in patient's care documentation, 35 minutes Medications at Discharge Home Medications aspirin 81 mg tablet,delayed release 81 mg PO DAILY heart health 03/29/17 levothyroxine 50 mcg tablet 50 mcg PO DAILY thyroid 03/29/17 losartan 100 mg tablet 100 mg PO DAILY blood pressure #90 tabs 08/17/18 doxazosin 4 mg tablet 4 mg PO DAILY blood pressure 10/20/18 amlodipine 10 mg tablet 10 mg PO DAILY blood pressure 08/13/19 metoprolol tartrate 50 mg tablet 50 mg PO BID blood pressure 08/12/20 clopidogrel 75 mg tablet (Plavix) 75 mg PO DAILY blood thinner 11/27/21 memantine 10 mg tablet 10 mg PO BID memory 07/23/22 biotin 1 mg tablet 1 mg PO DAILY supplement 08/31/22 cholecalciferol (vitamin D3) 25 mcg (1,000 unit) tablet 25 mcg PO DAILY supplement 08/31/22 folic acid 1 mg tablet 2 mg PO DAILY supplement 08/31/22 ginkgo biloba leaf extract 60 mg capsule 60 mg PO DAILY 08/31/22 potassium chloride 10 mEq tablet,extended release 10 meq PO DAILY 08/31/22 sulfasalazine 500 mg tablet 0.5 g PO DAILY joint pain 08/31/22 atorvastatin 40 mg tablet 40 mg PO QHS cholesterol 30 days #30 tabs 10/23/22 hydrocodone-acetaminophen 5-325mg 5mg-325mg 1 tab PO Q6H PRN PRN Pain 3 days #10 TABLETS 05/13/23 furosemide 40 mg tablet 40 mg PO QODAY water pill 05/14/23 melatonin 5 mg capsule 5 mg PO QHS sleep 05/14/23 potassium chloride 10 mEq tablet,extended release(part/cryst) 10 meq PO DAILY replacement 05/14/23 Hospital Course Summary of Care Provided Minutes Spent on Discharge: 35 Physical Exam Narrative GENERAL: cooperative HEENT: Atraumatic; normocephalic EYES; Anicteric, Normal Conjunctiva NECK; supple, normal thyroid, RESPIRATORY: Diminished to auscultation CARDIOVASCULAR: Regular S1 S2, GI: soft, normoactive bowel sounds, : No Renal angle tenderness; EXTREMITIES: No edema, no clubbing, MUSCULOSKELETAL: Right upper extremity in a sling NEURO: Awake; no lateralizing signs. SKIN: No Rash PSYCH; Flat affect Weight / BMI Weight Weight: 51 kg Body Mass Index (BMI) 20.5 ABG / Lab / Microbiology Data 05/15/23 06:30 05/15/23 06:30 Laboratory: Laboratory Results - last 24 hr 05/15/23 06:30: WBC 7.5, RBC 2.96 L, Hgb 9.6 L, Hct 30.1 L, MCV 101.7 H, MCH 32.4 H, MCHC 31.9 L, RDW Std Deviation 49.1 H, RDW Coeff of Dileep 13.0, Plt Count 125 L, MPV 10.6, Immature Gran % (Auto) 0.400, Neut % (Auto) 77.6 H, Lymph % (Auto) 7.2 L, [place] % (Auto) 12.1 H, Eos % (Auto) 2.0, Baso % (Auto) 0.7, Absolute Neuts (auto) 5.8, Absolute Lymphs (auto) 0.54 L, Nucleated RBC % 0, Sodium 145, Potassium 3.8, Chloride 113 H, Carbon Dioxide 26.0, Anion Gap 6, BUN 18, Creatinine 0.85, Estim Creat Clear Calc 35.49, Est GFR (MDRD) Af Amer 81, Est GFR (MDRD) Non-Af 67, BUN/Creatinine Ratio 21.2 H, Glucose 117 H, Calcium 8.4 L, Phosphorus 3.1, Magnesium 2.0 D/C Instructions Discharge Diet: No restrictions Call your doctor if you observe: Fever of 101 or Higher, Shortness of breath, Fainting spells and Chest pain Meaningful Use Info Meaningful Use Diagnoses (Choose all that apply): None applicable Discharge Plan Admission Admit Date/Time: 05/13/23 23:26 Attending Provider: Terell Jordan Primary Care Provider: Ashley Montoya Consulting Providers: Maribell Patten Discharge Orders/Prescriptions Prescriptions: New hydrocodone-acetaminophen [hydrocodone-acetaminophen] 5-325 mg tablet 1 tab PO Q6H PRN PRN (Reason: Pain) 3 Days Qty: 10 0RF Continued losartan 100 mg tablet 100 mg PO DAILY Qty: 90 3RF amlodipine 10 mg tablet 10 mg PO DAILY doxazosin 4 mg tablet 4 mg PO DAILY metoprolol tartrate 50 mg tablet 50 mg PO BID sulfasalazine 500 mg tablet 0.5 g PO DAILY potassium chloride 10 mEq tablet extended release 10 meq PO DAILY folic acid 1 mg tablet 2 mg PO DAILY biotin 1 mg tablet 1 mg PO DAILY ginkgo biloba leaf extract 60 mg capsule 60 mg PO DAILY Rx Instructions: give with meal/snack cholecalciferol (vitamin D3) 25 mcg (1,000 unit) tablet 25 mcg PO DAILY clopidogrel [Plavix] 75 mg tablet 75 mg PO DAILY memantine 10 mg tablet 10 mg PO BID aspirin 81 MG tablet,delayed release (DR/EC) 81 mg PO DAILY levothyroxine 50 MCG tablet 50 mcg PO DAILY atorvastatin 40 mg Tablet 40 mg PO QHS 30 Days Qty: 30 0RF potassium chloride 10 mEq tablet,ER particles/crystals 10 meq PO DAILY melatonin 5 mg capsule 5 mg PO QHS furosemide 40 mg tablet 40 mg PO QODAY Rx Instructions: due to have 05/14/23 Referrals / Follow Up: Ashley Montoya MD [Primary Care Provider] - 5-7 Days Robert Syed MD [Med Staff - Active Staff] - 5-7 Days Disposition Disposition (needs filled in before D/C Order can be placed): Home Health Service Charges/Coding Visit Charges Inpatient E&M: 19208 Disch Hosp >30min
[2023-05-15 14:05] VITALS: BP 159/45; PULSE 66; RESP 18; TEMP 37.3; O2SAT 93
--- NOTE | 2023-05-16 10:22 | CASEMGMT ---
DANI RENE NOTE: Pt discharged home w/family yesterday. DANI RENE placed call to pt's daughter, Ya, as she had told this DANI RENE she would be interested in [facility] if pt went home. Ya states she has already contacted Dr Montoya re: [facility] and she is working on getting this arrangeD. She states she did get a enoc-walker that was recommended by therapy, but pt is not able to use it as well today @ home as she had with therapy yesterday. She reports pt is having some SOB when up moving around and has been painful and she has notified Dr Montoya if this as well. Ya states pt does have an apt w/ortho PA tomorrow. She voices no further needs or concerns and thanked DANI RENE for calling . Kudlip CHRISTIANSON RN, CM
== END 2023-05-15 14:55 | disposition home health service (06) ==
LOC: ED 23:24 → MS3 23:56
PROVIDERS: Admitting Provider Student in an Organized Health Care Education/Training Program; Emergency Provider Emergency Medicine; PCP Internal Medicine; Visit Provider Internal Medicine
DX: S42.214A Unspecified nondisplaced fracture of surgical neck of right humerus, initial encounter for closed fracture (principal); G30.9 Alzheimer's disease, unspecified; F02.80 Dementia in other diseases classified elsewhere, unspecified severity, without behavioral disturbance, psychotic disturbance, mood disturbance, and anxiety; S01.81XA Laceration without foreign body of other part of head, initial encounter; Z87.891 Personal history of nicotine dependence; M25.551 Pain in right hip; R53.81 Other malaise; I25.10 Atherosclerotic heart disease of native coronary artery without angina pectoris; W01.10XA Fall on same level from slipping, tripping and stumbling with subsequent striking against unspecified object, initial encounter; M79.671 Pain in right foot; I10 Essential (primary) hypertension; Z79.82 Long term (current) use of aspirin; E78.5 Hyperlipidemia, unspecified; Z79.899 Other long term (current) drug therapy; Z79.890 Hormone replacement therapy; Y93.89 Activity, other specified; Y92.9 Unspecified place or not applicable; Z23 Encounter for immunization; E03.9 Hypothyroidism, unspecified; D63.8 Anemia in other chronic diseases classified elsewhere
CPT/HCPCS: 12011; 36415; 70450; 73030; 73502; 73630; 80048; 83735; 84100; 85025; 90715; 96361; 96372; 96374; 96376; 97116; 97162; 97166; 97530; 97535; 99221; 99281; G0008; J7030; 90662; A4216; G0378

== ENCOUNTER 2023-05-19 13:28 | Emergency (ER) | payer MEDICARE, SELFPAY ==
[2023-05-19 13:29] VITALS: PULSE 77; RESP 16; TEMP 36.1; O2SAT 94; BMI 20.9
[2023-05-19 13:32] VITALS: BMI 20.9
[2023-05-19 13:34] VITALS: BP 167/82
--- NOTE | 2023-05-19 14:03 | RAD_ITS ---
EXAM: XR CHEST, 1 VIEW CLINICAL INDICATION: AMS TECHNIQUE: Frontal view of the chest. COMPARISON: XR Chest dated 10/22/2022 FINDINGS: LUNGS AND PLEURAL SPACES: Normal. No consolidation or edema. No pneumothorax. No effusion. HEART: Normal heart size. MEDIASTINUM: No mediastinal or hilar mass. BONES/JOINTS: An acute chondral fracture the proximal right humerus. RAD/Chest 1 View (Portable) IMPRESSION: 1. No acute cardiopulmonary abnormality. 2. Acute fracture of the proximal right humerus. Electronically Signed: David Sher MD at 14:19 EST ,
--- NOTE | 2023-05-19 14:04 | EKG12_ITS ---
Test Reason : FALL Blood Pressure : / mmHG Vent. Rate : 076 BPM Atrial Rate : 077 BPM P-R Int : 176 ms QRS Dur : 080 ms QT Int : 400 ms P-R-T Axes : 000 136 101 degrees QTc Int : 450 ms Sinus rhythm with Premature supraventricular complexes Low voltage QRS Left posterior fascicular block T wave abnormality, consider anterior ischemia Abnormal ECG Confirmed by JENNIFER MARTINEZ, MONY ([id number]), research editor PEDRO HSIEH ([id number]) on 05/20/2023 9:52:45 AM Referred By: LOLA Confirmed By:MONY RODRIGUEZ MD
[2023-05-19 14:20] LABS: Absolute Neutrophil Count 5.2 X10^3/uL (2.0-7.7); Basophil# 0.05 X10^3/uL; Basophil% 0.7 % (0-1); Eosinophils% 4.1 % (0-5); Hematocrit 31.7 % (37-47); Hemoglobin 10.2 g/dL (12.0-15.0); Lymphocyte % 10.9 % (19-41); Mean Corp Hgb Conc 32.2 g/dL (32-36); Mean Corpuscular Hgb 32.4 pg (27.0-32.0); Mean Corpuscular Volume 100.6 fL (81-99); Mean Platelet Vol. 10.3 fl (6.2-12.0); Monocyte# 0.94 X10^3/uL; Monocyte% 12.9 % (0-10); NRBC Flagged by Analyzer 0 % (0-5); Neutrophil # 5.19 X10^3/uL (2.7-7.7); Platelet Count 234 K/mm3 (150-450); RBC Distribution Width SD 47.4 fl (35.1-43.9); Red Blood Count 3.15 M/mm3 (4.2-5.4); White Blood Count 7.3 K/mm3 (4.4-11.0)
[2023-05-19 14:27] LABS: Partial Thromboplast Time 36.4 Seconds (24.1-36.2)
[2023-05-19 14:30] LABS: AST(SGOT) 25 U/L (15-37); Alanine Aminotransfer ALT/SGPT 26 U/L (13-56); Albumin, Serum 3.3 g/dL (3.2-5.0); Alkaline Phosphatase 89 U/L (45-117); Anion Gap 5 (5-15); BUN 14 mg/dL (7-18); BUN/Creat Ratio 15.6 RATIO (10-20); Calcium,Total 9.6 mg/dL (8.5-10.1); Chloride 105 mmol/L (98-107); EST Glomerular Filtration Rate 63 mL/min (>60); Est Glom Filt Rate - Afr Amer 76 mL/min (>60); Estimated Creatinine Clearance 33.52 ml/min; Globulin 3.4 g/dL (2.2-4.2); Glucose 156 mg/dL (74-106); Potassium 3.5 mmol/L (3.5-5.1); Protein, Total 6.7 g/dL (6.4-8.2); Sodium Level 139 mmol/L (136-145)
[2023-05-19 14:32] LABS: Prothrombin Time (Protime)PT. 13.2 SECONDS (11.7-14.9)
[2023-05-19 14:33] LABS: Bacteria 0 SEEN /hpf (None Seen); Mucous, Urine 0 SEEN /hpf (<or=2+); Red Blood Cells-Urine 0 SEEN /hpf (0-5); Squamous Epithelial Cells - UA 0 SEEN /hpf (5-10); White Blood Cells 0 SEEN /hpf (0-5)
--- NOTE | 2023-05-19 14:36 | EDS_ITS ---
HPI History of Present Illness Chief Complaint: Trauma Informant: patient Narrative Narrative: Patient is an 87-year-old female with history of mild dementia, hypertension, hypothyroid and recent mechanical fall with admission for debility associated with the right proximal humerus fracture and right maxillary fracture. Patient was admitted 05/13 and discharged on 05/15 to home. She was discharged with a hemiwalker. Daughter whom she lives with notes that she has had increasing episodes of delirium and altered mental status/confusion since her discharge. She followed up with her primary care doctor who ordered an outpatient CT of the brain. The CT of the brain was concerning for a new 6 mm subdural hemorrhage and patient was sent to the emergency room for further evaluation. No report of any new traumas or falls. Patient currently has no complaints at this time except for continued right shoulder pain. Patient did take her morning medication this morning including her Plavix and aspirin. [facility] Medical History Atherosclerotic heart disease of [place] coronary artery without angina pectoris Cataract Constipation Dementia Essential (primary) hypertension Hearing loss, left Hearing loss, right Hyperlipidemia Hypertension Hypothyroidism Non-ST elevation (NSTEMI) myocardial infarction (03/09/15) Pericardial effusion Peripheral vascular disease with claudication Positive colorectal cancer screening using Cologuard test Stenosis of right carotid artery Wears hearing aid in both ears Home Medications aspirin 81 mg tablet,delayed release 81 mg PO DAILY heart health 03/29/17 [History Last Taken 05/13/23] levothyroxine 50 mcg tablet 50 mcg PO DAILY thyroid 03/29/17 [History Last Taken 05/13/23] losartan 100 mg tablet 100 mg PO DAILY blood pressure #90 tabs 08/17/18 [Rx Last Taken 05/13/23] doxazosin 4 mg tablet 4 mg PO DAILY blood pressure 10/20/18 [History Last Taken 05/13/23] amlodipine 10 mg tablet 10 mg PO DAILY blood pressure 08/13/19 [History Last Taken 05/13/23] metoprolol tartrate 50 mg tablet 50 mg PO BID blood pressure 08/12/20 [History L ast Taken 05/13/23 08:00] clopidogrel 75 mg tablet (Plavix) 75 mg PO DAILY blood thinner 11/27/21 [History Last Taken 05/13/23] memantine 10 mg tablet 10 mg PO BID memory 07/23/22 [History Last Taken 05/13/23 08:00] biotin 1 mg tablet 1 mg PO DAILY supplement 08/31/22 [History Last Taken 05/13/23] cholecalciferol (vitamin D3) 25 mcg (1,000 unit) tablet 25 mcg PO DAILY supplement 08/31/22 [History Last Taken 05/13/23] folic acid 1 mg tablet 2 mg PO DAILY supplement 08/31/22 [History Last Taken 05/13/23] ginkgo biloba leaf extract 60 mg capsule 60 mg PO DAILY 08/31/22 [History Last Taken 05/13/23] potassium chloride 10 mEq tablet,extended release 10 meq PO DAILY 08/31/22 [History Last Taken Unknown] sulfasalazine 500 mg tablet 0.5 g PO DAILY joint pain 08/31/22 [History Last Taken 05/13/23] atorvastatin 40 mg tablet 40 mg PO QHS cholesterol 30 days #30 tabs 10/23/22 [Rx Last Taken 05/12/23 21:00] hydrocodone-acetaminophen 5-325mg 5mg-325mg 1 tab PO Q6H PRN PRN Pain 3 days #10 TABLETS 05/13/23 [Rx Last Taken Unknown] furosemide 40 mg tablet 40 mg PO QODAY water pill 05/14/23 [History Last Taken Unknown] melatonin 5 mg capsule 5 mg PO QHS sleep 05/14/23 [History Last Taken 05/13/23] potassium chloride 10 mEq tablet,extended release(part/cryst) 10 meq PO DAILY replacement 05/14/23 [History Last Taken 05/13/23] Allergy/AdvReac Type Severity Reaction Status Date / Time codeine Allergy Nausea/Vom/ Verified 05/19/23 13:32 Diarrhea duloxetine HCl Allergy Nausea/Vom/ Verified 05/19/23 13:32 [From Cymbalta] Diarrhea esomeprazole [From Nexium] Allergy Unknown Verified 05/19/23 13:32 gabapentin Allergy Unknown Verified 05/19/23 13:32 lisinopril Allergy Nausea Verified 05/19/23 13:32 tramadol Allergy Nausea Verified 05/19/23 13:32 meloxicam AdvReac Intermediate GI upset Verified 05/19/23 13:32 iodine AdvReac Hives Verified 05/19/23 13:32 Penicillins AdvReac Other Verified 05/19/23 13:32 Family History Father Cancer Mother No problems noted. Surgical History History of angioplasty of peripheral vessel (04/2017) History of coronary artery stent placement History of left heart catheterization (03/10/15) Hx of cholecystectomy Hx of shoulder surgery Social History housing: house Smoking Status: Former smoker alcohol intake: never substance use type: does not use caffeine: Yes Type: coffee Number of servings: 1 what type of physical activity do you participate in: none seatbelt use: always do you feel safe at home: Yes ROS ROS ED Constitutional Constitutional ED: Denies chills or fever(s) Eyes Eyes: Denies blurry vision or change in vision Cardiovascular Cardiovascular: Denies chest pain Respiratory/Chest Respiratory/Chest: Denies cough Gastrointestinal Gastrointestinal: Denies nausea or vomiting Musculoskeletal Musculoskeletal: Reports other Details: Continued right foot pain and right shoulder pain Integumentary Reports other Details: Healing bruises to the right side of the face Neurologic Neurologic: Reports other Details: Episodes of confusion, transient ; Denies headache(s), paresthesias or weakness Hematologic/Lymphatic Hematologic/Lymphatic: Denies easy bleeding or easy bruising EXAM Physical Exam Const Vital Signs: 05/19/23 13:29 05/19/23 13:34 05/19/23 14:56 Temperature 97 F L Temperature Source Temporal Pulse Rate 77 60 Respiratory Rate 16 13 Blood Pressure 167/82 H 149/122 H Blood Pressure Mean 110 131 Pulse Ox 94 98 Oxygen Delivery Method Room Air Positive well nourished and well developed General Appearance ED: well developed and NAD HEENT Reports moist mucous membranes HEENT Narrative: Hearing aids in place. Healing ecchymosis noted over the right cheek and right periorbital area. trauma Eyes PERRL Neck supple Chest Wall inspection of chest normal and palpation of chest normal Resp normal respiratory effort and clear to auscultation bilaterally Cardio regular rate and regular rhythm GI normal to inspection, nondistended, normoactive bowel sounds Extremity Extremity Narrative: Tenderness palpation of the right proximal humerus. Decreased range of motion of the shoulder. No other focal tenderness or injury appreciated. Neuro CN's II-XII intact bilaterally Neuro Narrative: No focal deficits appreciated. Patient not able to raise her right arm secondary to fracture of the proximal humerus but has good strength and sensation of the hand distally. Orientation at baseline, oriented to self. Sensorium / Orientation: alert Motor Exam: Negative for general weakness Psych mental status grossly normal Skin no rashes or lesions noted Skin Narrative: Healing ecchymosis to the right side of the face MDM MDM MDM Narrative Medical decision making narrative: Patient is evaluated for mental status change in the setting of outpatient CT that showed a subdural hematoma per report. Case initially discussed with her physician, Dr. Montoya. CT report reviewed which shows a 6 mm acute subdural hygroma. Suspect this is traumatic in nature and likely more of a subacute bleed. No report of any shift but there is minor compression of the right frontal lobe. Repeat labs obtained. Patient ate prior to arrival and had a good appetite. Spoke at length with patient and daughter about goals of care. Discussed that we do not have any neurosurgical capabilities at this hospital. They would like transfer for neurosurgical evaluation and consult. Patient be transferred to trauma given that I suspect this CT finding associated with her recent fall 6 days ago. She [facility] go [facility] ER, case discussed with Dr. Ac, emergency medicine physician who is accepting physician. Patient is hypertensive in the ER. Is given 5 mg IV dose of labetalol with goal blood pressure less than 160 systolic. Patient has GCS of 15 at this time does not require any airway protection. Lab Data Attestation: I reviewed the patient's lab results. Labs: Laboratory Results - last 24 hr 05/19/23 05/19/23 13:40 14:25 WBC 7.3 RBC 3.15 L Hgb 10.2 L Hct 31.7 L MCV 100.6 H MCH 32.4 H MCHC 32.2 RDW Std Deviation 47.4 H RDW Coeff of Dileep 13.0 Plt Count 234 MPV 10.3 Immature Gran % (Auto) 0.400 Neut % (Auto) 71.0 H Lymph % (Auto) 10.9 L [place] % (Auto) 12.9 H Eos % (Auto) 4.1 Baso % (Auto) 0.7 Absolute Neuts (auto) 5.2 Absolute Lymphs (auto) 0.80 L Nucleated RBC % 0 PT 13.2 INR 1.0 APTT 36.4 H Sodium 139 Potassium 3.5 Chloride 105 Carbon Dioxide 29.0 Anion Gap 5 BUN 14 Creatinine 0.90 Estim Creat Clear Calc 33.52 Est GFR (MDRD) Af Amer 76 Est GFR (MDRD) Non-Af 63 BUN/Creatinine Ratio 15.6 Glucose 156 H Calcium 9.6 Total Bilirubin 0.80 AST 25 ALT 26 Alkaline Phosphatase 89 Total Protein 6.7 Albumin 3.3 Globulin 3.4 Albumin/Globulin Ratio 1.0 Urine Color Yellow Urine Clarity Clear Urine pH 7.0 Ur Specific [place] 1.005 Urine Protein Negative Urine Glucose (UA) Normal Urine Ketones Negative Urine Occult Blood Negative Urine Nitrite Negative Urine Bilirubin Negative Urine Urobilinogen Normal Ur Leukocyte Esterase Negative Urine RBC 0 SEEN Urine WBC 0 SEEN Ur Squamous Epith Cells 0 SEEN Urine Bacteria 0 SEEN Urine Mucus 0 SEEN Radiography Chest X-Ray - ED: 1 View, Read by ED Physician, Read by Radiologist, No Acute Disease and - (No acute cardiopulmonary process. Known right proximal humerus fracture) Diagnostic Testing: Clinical Impression(s) from Imaging Studies Chest X-Ray 05/19/23 14:03 IMPRESSION: 1. No acute cardiopulmonary abnormality. 2. Acute fracture of the proximal right humerus. Electronically Signed: David Sher MD at 14:19 EST , Rhythm Strip Rhythm Strip: Sinus Rhythm Rate: 76 Ectopy: None EKG Initial EKG: Attestation: I personally reviewed and interpreted this EKG as follows: Interpretation: Sinus Rhythm Comments: Normal sinus rhythm at a rate of 76 beats per minutes Low voltage QRS Normal intervals Normal ST segments Left posterior fascicular block presents Management Discussion w/another healthcare provider: Other ([facility] ER physician) Discharge Plan Triage Chief Complaint: Trauma Other Complaint: Neuro S/Sx ED Provider: Oralia Love Dx/Rx/DC Orders Clinical Impression: Traumatic subdural hygroma, Acute alteration in mental status, Essential (primary) hypertension Prescriptions: No Action losartan 100 mg tablet 100 mg PO DAILY Qty: 90 3RF amlodipine 10 mg tablet 10 mg PO DAILY doxazosin 4 mg tablet 4 mg PO DAILY metoprolol tartrate 50 mg tablet 50 mg PO BID sulfasalazine 500 mg tablet 0.5 g PO DAILY potassium chloride 10 mEq tablet extended release 10 meq PO DAILY folic acid 1 mg tablet 2 mg PO DAILY biotin 1 mg tablet 1 mg PO DAILY ginkgo biloba leaf extract 60 mg capsule 60 mg PO DAILY Rx Instructions: give with meal/snack cholecalciferol (vitamin D3) 25 mcg (1,000 unit) tablet 25 mcg PO DAILY clopidogrel [Plavix] 75 mg tablet 75 mg PO DAILY memantine 10 mg tablet 10 mg PO BID aspirin 81 MG tablet,delayed release (DR/EC) 81 mg PO DAILY levothyroxine 50 MCG tablet 50 mcg PO DAILY atorvastatin 40 mg Tablet 40 mg PO QHS 30 Days Qty: 30 0RF hydrocodone-acetaminophen [hydrocodone-acetaminophen] 5-325 mg tablet 1 tab PO Q6H PRN PRN (Reason: Pain) 3 Days Qty: 10 0RF potassium chloride 10 mEq tablet,ER particles/crystals 10 meq PO DAILY melatonin 5 mg capsule 5 mg PO QHS furosemide 40 mg tablet 40 mg PO QODAY Rx Instructions: due to have 05/14/23 Primary Care Provider: Ashley Montoya Referrals: Ashley Montoya MD [Primary Care Provider] - Disposition Disposition: Acute Care Hospital Discharge Location: [facility] Discharge Date/Time: 05/19/23 15:08 Capacity Legal [employer] Reflex Medical hold order details:: IF a medical hold is selected below, a suggested order for a MEDICAL HOLD will reflex upon signing the document. Next of kin: [place] law dictates a PRIORITY LIST for identifying legal decision-maker/legal next of kin in the following order (LNOK): 1st: The patient?s legal guardian, if any 2nd: The patient's spouse (if status is questionable, consult Risk Management) 3rd: The patient?s adult child(mireya) (majority, if multiple children) 4th: The patient?s parents 5th: The patient?s adult siblings (majority, if multiple children siblings)
[2023-05-19] MEDS: Labetalol (Prefilled) 20 MG/4 ML 5 MG IV (14:38)
[2023-05-19 14:46] LABS: Color, Urine Yellow (Yellow); Glucose, Dipstick Normal (Normal); Ketone-Dipstick Negative (Negative); Leukocyte Esterase-Dipstick Negative /ul (Negative); Nitrite-Dipstick Negative (Negative); Occult Blood-Urine Negative /ul (Negative); Protein-Dipstick Negative (Negative); Specific Gravity, Urine 1.005 (1.002-1.030); Urine Bilirubin Dipstick Negative (Negative); Urine Clarity Clear (Clear); Urine Urobilinogen Normal (Normal)
[2023-05-19 14:56] VITALS: BP 149/122; PULSE 60; RESP 13; O2SAT 98
--- NOTE | 2023-05-19 15:04 | ED.RN ---
Report given to [facility] nurse Hazel.
== END 2023-05-19 15:08 | disposition short-term general hospital (02) ==
PROVIDERS: Emergency Provider Emergency Medicine; PCP Internal Medicine; Visit Provider Emergency Medicine
DX: S06.5X0A Traumatic subdural hemorrhage without loss of consciousness, initial encounter (principal); G93.5 Compression of brain; F03.90 Unspecified dementia, unspecified severity, without behavioral disturbance, psychotic disturbance, mood disturbance, and anxiety; R41.82 Altered mental status, unspecified; I10 Essential (primary) hypertension; G96.08 Other cranial cerebrospinal fluid leak; Z87.891 Personal history of nicotine dependence; E03.9 Hypothyroidism, unspecified; I25.10 Atherosclerotic heart disease of native coronary artery without angina pectoris; E78.5 Hyperlipidemia, unspecified; Z79.02 Long term (current) use of antithrombotics/antiplatelets; Z79.82 Long term (current) use of aspirin; S42.201D Unspecified fracture of upper end of right humerus, subsequent encounter for fracture with routine healing; D64.9 Anemia, unspecified; X58.XXXA Exposure to other specified factors, initial encounter; W19.XXXD Unspecified fall, subsequent encounter
CPT/HCPCS: 36415; 70450; 71045; 80048; 80053; 81001; 85025; 85610; 85730; 93005; 96374; 99285; A4216

== ENCOUNTER → 2023-05-19 | Outpatient (CLI) | payer MEDICARE, SELFPAY ==
--- NOTE | 2023-05-19 10:51 | CT_ITS ---
EXAM: CT HEAD WITHOUT INTRAVENOUS CONTRAST CLINICAL INDICATION: delirium TECHNIQUE: Multiple axial images were obtained of the head without intravenous contrast. This CT exam was performed using one or more of the following dose reduction techniques: automated exposure control, adjustment of the mA and/or kV according to patient size, and/or use of iterative reconstruction technique. COMPARISON: CT Head dated 05/13/2023 FINDINGS: BRAIN AND EXTRA-AXIAL SPACES: Interval development of a 6 mm thick right-sided subdural hygroma causing minor compression of the right frontal lobe. No acute hemorrhage. Areas of diminished white matter density noted within both cerebral hemispheres suggestive of chronic microvascular change. Prominence of the cortical sulci and ventricles related to volume loss change. Posterior fossa is normal. BONES/JOINTS: No suspicious lytic or blastic abnormality. SOFT TISSUES: Improving periorbital soft tissue swelling. SINUSES: Interval clearing of the blood within the right maxillary sinus. MASTOID AIR CELLS: Normal. Clear. CT/Brain/Head without Contrast IMPRESSION: 1. Interval development of a new 6 mm thick small right-sided subdural hygroma. 2. Resolution of the right maxillary sinus hematoma. Electronically Signed: David Sher MD at 11:19 EST ,
[2023-05-19 11:34] LABS: Absolute Lymphocyte Count 0.54 X10^3/uL (0.83-4.51); Absolute Neutrophil Count 3.9 X10^3/uL (2.0-7.7); Basophil# 0.07 X10^3/uL; Basophil% 1.2 % (0-1); Eosinophils% 3.6 % (0-5); Hematocrit 29.5 % (37-47); Hemoglobin 9.7 g/dL (12.0-15.0); Lymphocyte # 0.54 X10^3/ul (0.83-4.51); Lymphocyte % 9.6 % (19-41); Mean Corp Hgb Conc 32.9 g/dL (32-36); Mean Corpuscular Hgb 33.3 pg (27.0-32.0); Mean Corpuscular Volume 101.4 fL (81-99); Mean Platelet Vol. 9.9 fl (6.2-12.0); NRBC Flagged by Analyzer 0 % (0-5); Neutrophil % 69.4 % (47-70); POSITIVE DIFFERENTIAL YES; Platelet Count 199 K/mm3 (150-450); RBC Distribution Width SD 48.3 fl (35.1-43.9); Red Blood Count 2.91 M/mm3 (4.2-5.4); White Blood Count 5.6 K/mm3 (4.4-11.0)
[2023-05-19 11:52] LABS: Anion Gap 3 (5-15); BUN 14 mg/dL (7-18); BUN/Creat Ratio 17.5 RATIO (10-20); Chloride 110 mmol/L (98-107); EST Glomerular Filtration Rate 72 mL/min (>60); Est Glom Filt Rate - Afr Amer 87 mL/min (>60); Glucose 99 mg/dL (74-106); Potassium 3.6 mmol/L (3.5-5.1); Sodium Level 142 mmol/L (136-145)
[2023-05-19 12:36] LABS: Differential Indicated SCAN CRITERIA MET
[2023-05-19 12:41] LABS: Differential Comment SCANNED
== END | disposition home or self-care (01) ==
PROVIDERS: PCP Internal Medicine; Referring Provider Internal Medicine; Visit Provider Internal Medicine
DX: R41.0 Disorientation, unspecified (principal); D64.9 Anemia, unspecified
CPT/HCPCS: 36415; 70450; 80048; 85025

== ENCOUNTER 2023-05-28 03:02 | Emergency (ER) | payer MEDICARE, SELFPAY ==
[2023-05-28 03:10] VITALS: BP 103/75; PULSE 74; RESP 26; TEMP 36.1; O2SAT 97; BMI 19.8
[2023-05-28 03:27] LABS: Absolute Lymphocyte Count 0.72 X10^3/uL (0.83-4.51); Absolute Neutrophil Count 18.6 X10^3/uL (2.0-7.7); Basophil# 0.12 X10^3/uL; Basophil% 0.6 % (0-1); Eosinophil# 0.02 X10^3/uL; Eosinophils% 0.1 % (0-5); Hemoglobin 9.8 g/dL (12.0-15.0); Lymphocyte # 0.72 X10^3/ul (0.83-4.51); Lymphocyte % 3.4 % (19-41); Mean Corp Hgb Conc 29.7 g/dL (32-36); Mean Corpuscular Hgb 32.2 pg (27.0-32.0); Mean Corpuscular Volume 108.6 fL (81-99); Mean Platelet Vol. 10.4 fl (6.2-12.0); Monocyte# 1.14 X10^3/uL; Monocyte% 5.4 % (0-10); NRBC Flagged by Analyzer 0.2 % (0-5); Neutrophil # 18.64 X10^3/uL (2.7-7.7); Neutrophil % 88.4 % (47-70); Platelet Count 254 K/mm3 (150-450); RBC Distribution Width SD 51.8 fl (35.1-43.9); Red Blood Count 3.04 M/mm3 (4.2-5.4); White Blood Count 21.1 K/mm3 (4.4-11.0)
[2023-05-28 03:32] LABS: Bedside Glucose 62 mg/dL (74-106)
[2023-05-28] MEDS: 0.9% Normal Saline (500mL Bag) 500 ML 1000 ML IV (03:40)
[2023-05-28 03:44] LABS: Prothrombin Time (Protime)PT. 31.9 SECONDS (11.7-14.9)
[2023-05-28 03:45] LABS: Partial Thromboplast Time 49.9 Seconds (24.1-36.2)
--- NOTE | 2023-05-28 03:51 | EX.ED.DYSGE1 ---
HPI History of Present Illness Chief Complaint: GI Bleed Detail of Chief Complaint: Patient was sent in because of blood in stool Informant: EMS Limited: stupor Onset/Context/Timing Onset: Today Context: Sudden Onset (Altered mental status occurred since transport from facility) Timing: Intermittent Quality: Reported bloody stool with clots and new change in mental status since quad Location: GI Current Severity: Unable to determine Maximum Severity: Unable to determine Worsened by: Unknown Relieved by: Unable to determine Associated Symptoms Associated Symptoms: Unable to determine Narrative Narrative: Patient is an 87-year-old woman. She does have a living will. She is no CPR and no intubation per family members. When patient arrived she was moaning. Patient did not have a startle response. Patient did not open her eyes to verbal tactile or noxious stimuli. Patient moaning. Unable to get any history from patient. Review of documents that accompanied her indicates she is not on anticoagulant. 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 Cataract Constipation Dementia Essential (primary) hypertension Hearing loss, left Hearing loss, right Hyperlipidemia Hypertension Hypothyroidism Non-ST elevation (NSTEMI) myocardial infarction (03/09/15) Pericardial effusion Peripheral vascular disease with claudication Positive colorectal cancer screening using Cologuard test Stenosis of right carotid artery Wears hearing aid in both ears Home Medications aspirin 81 mg tablet,delayed release 81 mg PO DAILY heart health 03/29/17 [History Last Taken 05/13/23] levothyroxine 50 mcg tablet 50 mcg PO DAILY thyroid 03/29/17 [History Last Taken 05/13/23] losartan 100 mg tablet 100 mg PO DAILY blood pressure #90 tabs 08/17/18 [Rx Last Taken 05/13/23] doxazosin 4 mg tablet 4 mg PO DAILY blood pressure 10/20/18 [History Last Taken 05/13/23] amlodipine 10 mg tablet 10 mg PO DAILY blood pressure 08/13/19 [History Last Taken 05/13/23] metoprolol tartrate 50 mg tablet 50 mg PO BID blood pressure 08/12/20 [History Last Taken 05/13/23 08:00] clopidogrel 75 mg tablet (Plavix) 75 mg PO DAILY blood thinner 11/27/21 [History Last Taken 05/13/23] memantine 10 mg tablet 10 mg PO BID memory 07/23/22 [History Last Taken 05/13/23 08:00] biotin 1 mg tablet 1 mg PO DAILY supplement 08/31/22 [History Last Taken 05/13/23] cholecalciferol (vitamin D3) 25 mcg (1,000 unit) tablet 25 mcg PO DAILY supplement 08/31/22 [History Last Taken 05/13/23] folic acid 1 mg tablet 2 mg PO DAILY supplement 08/31/22 [History Last Taken 05/13/23] ginkgo biloba leaf extract 60 mg capsule 60 mg PO DAILY 08/31/22 [History Last Taken 05/13/23] potassium chloride 10 mEq tablet,extended release 10 meq PO DAILY 08/31/22 [History Last Taken Unknown] sulfasalazine 500 mg tablet 0.5 g PO DAILY joint pain 08/31/22 [History Last Taken 05/13/23] atorvastatin 40 mg tablet 40 mg PO QHS cholesterol 30 days #30 tabs 10/23/22 [Rx Last Taken 05/12/23 21:00] hydrocodone-acetaminophen 5-325mg 5mg-325mg 1 tab PO Q6H PRN PRN Pain 3 days #10 TABLETS 05/13/23 [Rx Last Taken Unknown] furosemide 40 mg tablet 40 mg PO QODAY water pill 05/14/23 [History Last Taken Unknown] melatonin 5 mg capsule 5 mg PO QHS sleep 05/14/23 [History Last Taken 05/13/23] potassium chloride 10 mEq tablet,extended release(part/cryst) 10 meq PO DAILY replacement 05/14/23 [History Last Taken 05/13/23] Allergy/AdvReac Type Severity Reaction Status Date / Time codeine Allergy Nausea/Vom/ Verified 05/28/23 03:09 Diarrhea duloxetine HCl Allergy Nausea/Vom/ Verified 05/28/23 03:09 [From Cymbalta] Diarrhea esomeprazole [From Nexium] Allergy Unknown Verified 05/28/23 03:09 gabapentin Allergy Unknown Verified 05/28/23 03:09 lisinopril Allergy Nausea Verified 05/28/23 03:09 tramadol Allergy Nausea Verified 05/28/23 03:09 meloxicam AdvReac Intermediate GI upset Verified 05/28/23 03:09 iodine AdvReac Hives Verified 05/28/23 03:09 Penicillins AdvReac Other Verified 05/28/23 03:09 Family History Father Cancer Mother No problems noted. Surgical History History of angioplasty of peripheral vessel (04/2017) History of coronary artery stent placement History of left heart catheterization (03/10/15) Hx of cholecystectomy Hx of shoulder surgery Social History housing: house Smoking Status: Former smoker alcohol intake: never substance use type: does not use caffeine: Yes Type: coffee Number of servings: 1 what type of physical activity do you participate in: none seatbelt use: always do you feel safe at home: Yes ROS ROS ED Review of Systems ROS Unobtainable: due to mental status EXAM Physical Exam Const Vital Signs: 05/28/23 03:10 Temperature 96.9 F L Temperature Source Temporal Pulse Rate 74 Respiratory Rate 26 H Blood Pressure 103/75 Blood Pressure Mean 84 Pulse Ox 97 Positive well developed and cachectic Constitutional Narrative: Patient with depressed level of consciousness. I response 1, verbal incomprehensible moans to, motor 1 General Appearance ED: well developed, cachectic and pallor; Negative for cyanotic, diaphoretic or NAD Nutritional Appearance: cachectic HEENT Reports dry mucous membranes HEENT Narrative: Head is atraumatic and normocephalic. Ears normal. Nares patent. Mouth ED: Yes dry mucous membranes Mouth: dry mucous membranes Eyes PERRL General Eye ED: Yes pale conjunctiva; Negative for scleral icterus Neck no lymphadenopathy, supple and no JVD Chest Wall inspection of chest normal and palpation of chest normal Resp normal respiratory effort Resp Narrative: Adventitial breath sounds. There is also transmission of upper airway sounds. Auscultation: diminished lung sounds Cardio regular rate, regular rhythm, S1 normal heart sound, S2 normal heart sound and no murmurs GI non-distended and no masses; Negative for non-tender or hepatosplenomegaly GI Narrative: Patient has odd colored stool with mucus. There is no obvious blood or blood clots. Stool is not black or maroon. Stool is more of an orange color. Auscultation: hypoactive bowel sounds Palpation: soft and tender other (Diffuse) Narrative: External genitalia normal Extremity Extremity Narrative: There is no acral cyanosis or clubbing. Cap refill is 2 to 3 seconds. Neuro No oriented x3 and No no sensory deficits noted Neuro Narrative: GCS is 4. Sensorium / Orientation: Negative for alert Psych Psych Narrative: Unable to determine Skin No skin turgor normal General Skin Exam: pallor; Negative for elasticity normal or jaundice MDM MDM MDM Narrative Medical decision making narrative: With altered mental status patient could be septic. She may have infectious colitis. Doubt GI bleed. Need to obtain appropriate workup for metabolic and infectious etiology for her altered mental status. Also obtain BGT to determine if she is hypoglycemic. Had discussion with family once they arrive regarding CODE STATUS. She does have a living will and she is DNR Comfort Care arrest with no intubation or CPR. Central line is appropriate. Pressors are appropriate. Fluids and antibiotics are appropriate. Lab Data Attestation: I reviewed the patient's lab results. Lab results narrative: White count is elevated 21,000 with shift. Blood cultures were obtained. Patient's coags are elevated. Will confirm with nursing facility that she is not on an anticoagulant. Basic metabolic panel is marked for CO2 of 5 with an anion gap of 29. This represents a profound acidosis. Stool did test positive for blood. Labs: Laboratory Results - last 24 hr 05/28/23 05/28/23 05/28/23 03:13 03:18 04:02 WBC 21.1 H RBC 3.04 L Hgb 9.8 L Hct 33.0 L MCV 108.6 H MCH 32.2 H MCHC 29.7 L RDW Std Deviation 51.8 H RDW Coeff of Dileep 13.0 Plt Count 254 MPV 10.4 Immature Gran % (Auto) 2.100 H Neut % (Auto) 88.4 H Lymph % (Auto) 3.4 L [place] % (Auto) 5.4 Eos % (Auto) 0.1 Baso % (Auto) 0.6 Absolute Neuts (auto) 18.6 H Absolute Lymphs (auto) 0.72 L Nucleated RBC % 0.2 PT 31.9 H INR 3.0 APTT 49.9 H Sodium 143 Potassium 4.9 Chloride 109 H Carbon Dioxide 5.0 L* Anion Gap 29 H BUN 41 H Creatinine 1.79 H Estim Creat Clear Calc 16.49 Est GFR (MDRD) Af Amer 34 L Est GFR (MDRD) Non-Af 28 L BUN/Creatinine Ratio 22.9 H Glucose 51 L Lactic Acid 23.9 H* Calcium 9.4 Urine Color Yellow Urine Clarity Cloudy Urine pH 5.0 Ur Specific [place] 1.025 Urine Protein 100 H Urine Glucose (UA) Normal Urine Ketones 15 H Urine Occult Blood 150 H Urine Nitrite Negative Urine Bilirubin Negative Urine Urobilinogen 1 H Ur Leukocyte Esterase Negative Urine RBC 0 SEEN Urine WBC 0 SEEN Ur Squamous Epith Cells 0 SEEN Amorphous Sediment 1+ Urine Bacteria 0 SEEN Urine Mucus 0 SEEN POC Glucose 62 L ABG Data Attestation: I personally reviewed and interpreted this ABG as follows: Interpretation: Metabolic acidosis. ABG results: ABG 05/28/23 04:41 Specimen Type VICKI Sample Site Not entered VBG pH 6.99 L* VBG pO2 77 H VBG Total CO2 < 5 L VBG O2 Sat (Calc) 87 H VBG Base Excess -28 L POC Mix VBG pCO2 Pt Tmp 13.5 L* O2 Delivery Device Not entered Crit Call To/Read Back Yes Blood Gas Notified Whom dr orozco Blood Gas Notified Time 04:43:41 EKG Initial EKG: Attestation: I personally reviewed and interpreted this EKG as follows: Interpretation: Sinus Rhythm (Rate is 73 and EKG is normal. WI interval is 168 ms. QRS duration 80 ms. QT duration 2014 ms. Diggs is normal.) Management Discussion w/another healthcare provider: Other Treatment and Re-Evaluation :: Since patient has iodine allergy she was pretreated with Pepcid, Benadryl and Solu-Medrol. Comments:: In light of patient's laboratory studies and stool Hemoccult test will obtain stool for C. difficile and enteric pathogens. Family was made aware of patient's condition and seriousness. They were made aware that she may not survive this hospitalization. In light of VBG result which reveals profound acidosis family was made aware of her condition and severity. After additional discussions it was decided to make her hospice. Will call hospice nurse for inpatient unit care. Patient was medicated with 1 mg of Ativan for agitation. If patient has not prior to change of shift patient's care will be transferred to the morning physician Dr. Rangel Sanderson. Patient was pronounced at 0658. 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, Essential (primary) hypertension, Acute kidney injury, Anemia, Chronic subdural hematoma, DNR (do not resuscitate) discussion, [place] coma scale score 3-8, at arrival to emergency department, Ketosis Prescriptions: No Action losartan 100 mg tablet 100 mg PO DAILY Qty: 90 3RF amlodipine 10 mg tablet 10 mg PO DAILY doxazosin 4 mg tablet 4 mg PO DAILY metoprolol tartrate 50 mg tablet 50 mg PO BID sulfasalazine 500 mg tablet 0.5 g PO DAILY potassium chloride 10 mEq tablet extended release 10 meq PO DAILY folic acid 1 mg tablet 2 mg PO DAILY biotin 1 mg tablet 1 mg PO DAILY ginkgo biloba leaf extract 60 mg capsule 60 mg PO DAILY Rx Instructions: give with meal/snack cholecalciferol (vitamin D3) 25 mcg (1,000 unit) tablet 25 mcg PO DAILY clopidogrel [Plavix] 75 mg tablet 75 mg PO DAILY memantine 10 mg tablet 10 mg PO BID aspirin 81 MG tablet,delayed release (DR/EC) 81 mg PO DAILY levothyroxine 50 MCG tablet 50 mcg PO DAILY atorvastatin 40 mg Tablet 40 mg PO QHS 30 Days Qty: 30 0RF hydrocodone-acetaminophen [hydrocodone-acetaminophen] 5-325 mg tablet 1 tab PO Q6H PRN PRN (Reason: Pain) 3 Days Qty: 10 0RF potassium chloride 10 mEq tablet,ER particles/crystals 10 meq PO DAILY melatonin 5 mg capsule 5 mg PO QHS furosemide 40 mg tablet 40 mg PO QODAY Rx Instructions: due to have 05/14/23 Primary Care Provider: Ashley Montoya Referrals: Ashley Montoya MD [Primary Care Provider] - Disposition Disposition: Hospice in Home Capacity Capacity Assessment Tool Patient lacks Decision Making Capacity: unable to understand, reason and deliberate health related choices: Yes Risk to self and or others?: Yes Risk of leaving the patient care unit and or hospital?: No Legal Clean Up Person Define type of medical hold:: Power of compliance attorney for healthcare (POAHC) Next of kin: Discussed send the medical decision/plan portion of the EMR.
[2023-05-28 04:10] LABS: Bacteria 0 SEEN /hpf (None Seen); Mucous, Urine 0 SEEN /hpf (<or=2+); Red Blood Cells-Urine 0 SEEN /hpf (0-5); Squamous Epithelial Cells - UA 0 SEEN /hpf (5-10); White Blood Cells 0 SEEN /hpf (0-5)
[2023-05-28 04:26] LABS: Anion Gap 29 (5-15); BUN 41 mg/dL (7-18); BUN/Creat Ratio 22.9 RATIO (10-20); Calcium,Total 9.4 mg/dL (8.5-10.1); Chloride 109 mmol/L (98-107); Creatinine, Serum 1.79 mg/dL (0.55-1.02); EST Glomerular Filtration Rate 28 mL/min (>60); Est Glom Filt Rate - Afr Amer 34 mL/min (>60); Estimated Creatinine Clearance 16.49 ml/min; Glucose 51 mg/dL (74-106); Potassium 4.9 mmol/L (3.5-5.1); Sodium Level 143 mmol/L (136-145)
[2023-05-28 04:38] LABS: Color, Urine Yellow (Yellow); Glucose, Dipstick Normal (Normal); Ketone-Dipstick 15 mg/dl (Negative); Leukocyte Esterase-Dipstick Negative /ul (Negative); Nitrite-Dipstick Negative (Negative); Occult Blood-Urine 150 /ul (Negative); Protein-Dipstick 100 mg/dl (Negative); Specific Gravity, Urine 1.025 (1.002-1.030); Urine Bilirubin Dipstick Negative (Negative); Urine Clarity Cloudy (Clear); Urine Urobilinogen 1 mg/dl (Normal)
[2023-05-28] MEDS: metroNIDAZOLE 500 MG/100 ML BAG 100 MG IV (04:41)
[2023-05-28] MEDS: Famotidine 200 MG/20 ML MDV 20 MG in 0.9% Normal Saline (Pres. free 8 ML 300 MG IV (04:41)
[2023-05-28] MEDS: MethylPREDNISolone 125 MG/2 ML Vial 60 MG IV (04:41)
[2023-05-28] MEDS: DiphenhydrAMINE 50 MG/ML Syringe 25 MG IV (04:41)
[2023-05-28 04:46] LABS: Blood Gas Specimen Type VEN; O2 Delivery Device Not entered; SITE Not entered; VBG BASE EXCESS -28 mmol/L (-1.0-3.5); VBG PO2 77 mmHg (25-40); VBG SO2 87 % (50-70); VBG TCO2 < 5 mmol/L (23-33); VBG pCO2 13.5 mmHg (41-51); VBG pH 6.99 (7.32-7.42)
[2023-05-28 04:49] LABS: Amorphous Sediment 1+
[2023-05-28] MEDS: LORazepam 2 MG/ML Syringe 1 MG IV (05:01)
[2023-05-28 05:03] VITALS: BP 89/55; PULSE 69; RESP 15; O2SAT 93
[2023-05-28] MEDS: Ciprofloxacin 400 MG/200 ML BAG 200 MG IV (06:00)
[2023-05-28 06:18] LABS: Lactic Acid 23.9 mmol/L (0.4-1.9)
--- NOTE | 2023-05-28 07:08 | ED.RN ---
One liter of fluids given total over stay.
[2023-05-28 08:08] LABS: Reflex Lactate? Y
== END 2023-05-28 09:01 ==
PROVIDERS: Emergency Provider Emergency Medicine; PCP Internal Medicine; Visit Provider Emergency Medicine
DX: A41.9 Sepsis, unspecified organism (principal); N17.9 Acute kidney failure, unspecified; K55.039 Acute (reversible) ischemia of large intestine, extent unspecified; R65.21 Severe sepsis with septic shock; I62.03 Nontraumatic chronic subdural hemorrhage; E88.89 Other specified metabolic disorders; D65 Disseminated intravascular coagulation [defibrination syndrome]; I25.10 Atherosclerotic heart disease of native coronary artery without angina pectoris; I10 Essential (primary) hypertension; D64.9 Anemia, unspecified; Z87.891 Personal history of nicotine dependence; R40.1 Stupor; Z66 Do not resuscitate; E78.5 Hyperlipidemia, unspecified
CPT/HCPCS: 51702; 80048; 81001; 82274; 82803; 82962; 83605; 85025; 85610; 85730; 87040; 93005; 96361; 96365; 96367; 96375; 99284; A4216; J0744; J3490